=== PATIENT | male | born 1955 | race Caucasian/White ===

== ENCOUNTER 2019-05-17 22:13 | Emergency (ER) | payer OTHER ==
[~2019-05-17] VITALS: Ht 175.3 cm; Wt 95.3 kg
[2019-05-17 22:52] LABS: ABSOLUTE BASOPHILS 0.1 thou/uL (0.0-0.2); ABSOLUTE EOSINOPHILS 0.1 thou/uL (0.0-0.7); ABSOLUTE LYMPHOCYTES 0.6 thou/uL (0.8-5.3); ABSOLUTE MONOCYTES 0.9 thou/uL (0.0-1.2); ABSOLUTE NEUTROPHILS 4.7 thou/uL (1.6-8.1); EOSINOPHILS 1.1 %; HEMATOCRIT 36.2 % (42.0-52.0); HEMOGLOBIN 12.4 gm/dL (14.0-18.0); LYMPHOCYTES 9.9 %; MCH 30.4 pg (26.0-34.0); MCHC 34.2 g/dL (28.0-37.0); MCV 88.9 fL (80.0-100.0); MONOCYTES 13.6 %; MPV 7.5 fl. (7.2-11.1); NUCLEATED RBCS 0 /100WBC; PLATELET COUNT* 136 thou/uL (150-400); POLYS 74.4 %; RBC 4.07 mil/uL (4.50-6.00); RDW-CV 13.4 % (10.5-14.5); WBC 6.4 thou/uL (4.0-11.0)
[2019-05-17 23:01] LABS: ANION GAP 10 mmol/L (7-16); BUN 19 mg/dL (7-18); CHLORIDE 100 mmol/L (98-107); CO2 23 mmol/L (21-32); CREATININE 1.2 mg/dL (0.6-1.3); GLUCOSE 121 mg/dL (70-99); SODIUM 133 mmol/L (136-145)
[2019-05-17 23:02] LABS: INR 1.1; PROTIME 10.9 Seconds (9.20-11.50)
[2019-05-17 23:11] LABS: ALBUMIN 3.6 g/dL (3.4-5.0); ALKALINE PHOSPHATASE 85 U/L (46-116); SGOT 23 U/L (15-37); SGPT 41 U/L (30-65); TOTAL BILIRUBIN 0.7 mg/dL (<0.1-1.0); TROPONIN-I LEVEL <0.06 ng/mL (<0.06)
[2019-05-18 01:17] LABS: URINE BILIRUBIN NEGATIVE (Negative); URINE BLOOD NEGATIVE (Negative); URINE CLARITY CLEAR; URINE COLOR YELLOW; URINE GLUCOSE-RANDOM NEGATIVE (Negative); URINE KETONES NEGATIVE (Negative); URINE LEUKOCYTES-REFLEX NEGATIVE (Negative); URINE NITRITE-REFLEX NEGATIVE (Negative); URINE PROTEIN NEGATIVE (Negative); URINE SPECIFIC GRAVITY <= 1.005 (1.005-1.030); URINE UROBILINOGEN 0.2 E.U./dl (0.2-1.0)
[2019-05-18] MEDS ORDERED: PRILOSEC OTC20 MG PO (02:29)
[2019-05-18] MEDS ORDERED: ZPAK PO (02:29)
[2019-05-18 02:45] VITALS: BP 138/58
--- NOTE | 2019-05-18 11:20 | EKG ---
[place] [address] ELECTROCARDIOGRAM REPORT Name: ELIZABETH CASH Room: [facility]#: [id number] Admission: 05/17/19 Attend Phys: Discharge: 05/18/19 Date of : 57 Report #: [id number] THIS REPORT FOR: //name// [facility] ED Test Date: 2019-05-17 Test Time: 22:34:30 Pat Name: ELIZABETH CASH Department: Room: Gender: M Manager Unit: [place] : 1955 Requested By: Sharona Lr Order Number: [id number] MD: Cricket Cortés Measurements Intervals [place] Rate: 128 P: 43 [place]: 154 QRS: -13 QRSD: 88 T: 16 QT: 305 QTc: 445 Interpretive Statements Sinus tachycardia Abnormal R-wave progression, early transition No previous ECG available for comparison Electronically Signed On 05-18-2019 11:20:04 CDT by Cricket Cortés [email or web address] <ELECTRONICALLY SIGNED> By: Darren Cortés MD, [facility] 05/18/19 [id number] Darren Cortés MD, FACC /EPI
== END 2019-05-18 02:46 | disposition home or self-care (01) ==
LOC: M.ERS 22:13
PROVIDERS: Emergency Medicine
DX: J06.9 Acute upper respiratory infection, unspecified (principal); R42 Dizziness and giddiness